=== PATIENT | female | born 1980 | race Caucasian/White ===

== ENCOUNTER 2018-07-14 20:16 | Emergency (ER) | payer SELFPAY ==
[2018-07-14] MEDS ORDERED: predniSONE 20 MG TAB PO ONE (20:45)
[2018-07-14] MEDS ORDERED: ALBUTEROL 3 ML DEYVIAL IH ONE (20:45)
[2018-07-14] MEDS ORDERED: DOXYCYCLINE HYCLATE 100 MG CAP/TAB PO ONE (20:45)
[2018-07-14] MEDS ORDERED: BENZONATATE 100 MG CAP PO ONE (20:45)
--- NOTE | 2018-07-14 20:45 | EDPHY ---
H & P Stated Complaint: "upper resp inf x2 wks", increasing dizziness, diff breathin Time Seen by Provider: 07/14/18 20:38 HPI/ROS: HPI: This is a 37-year-old female who presents with Chief Complaint: "upper resp inf x2 wks", increasing dizziness, diff breathin Location: Chest Quality: Cold and congestion Duration: 2 weeks Signs and Symptoms: no fever, no nausea, no vomiting, no diarrhea, no urinary symptoms, no chest pain, no shortness of breath, no wheezing, + cough, no sore throat, no neck stiffness, no joint pain, no swollen glands, no ear pain, no rash Timing: Daily, worsening Severity: Moderate Context: 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 She has no prior history of lung disease. She reports that she felt dizzy while starting to teaching had to leave work this evening. She initially started with runny nose, nasal congestion and sore throat. She now has complaints of difficulty taking a deep breath with productive cough. Modifying Factors: [id number] cold medications with no relief Comment: ROS: A comprehensive 10 system review of systems is otherwise negative aside from elements mentioned in the history of present illness. MEDICAL/SURGICAL/SOCIAL HISTORY: Medical history: Generally healthy. Does not take any regular medications. LMP 2-3 weeks ago Surgical history: Denies Social history: Never smoked. Family history noncontributory. CONSTITUTIONAL: Extremely well-appearing adult white female, awake and alert, no obvious distress HEENT: Atraumatic and normocephalic, PERRL, EOMI. Nares patent; no rhinorrhea; no nasal mucosal edema. Tympanic membranes clear. Oropharynx clear, no tonsillar hypertrophy, no exudate and moist pink mucosa. Airway patent. No lymphadenopathy. No meningismus. Cardiovascular: Normal S1/S2, regular rate, regular rhythm, without murmur rub or gallop. PULMONARY/CHEST: Symmetrical and nontender. Clear to auscultation bilaterally. Good air movement. No accessory muscle usage. ABDOMEN: Soft, nondistended, nontender, no rebound, no guarding, no peritoneal signs, no masses or organomegaly. No CVAT. EXTREMITIES: 2/2 pulses, strength 5/5, no deformities, no clubbing, no cyanosis or edema. NEUROLOGICAL: no focal neuro deficits. GCS 15. SKIN: Warm and dry, no erythema. no rash. Good capillary refill. Source: Patient Exam Limitations: No limitations - Personal History LMP (Females 10-55): 15-21 Days Ago Current Tetanus Diphtheria and Acellular Pertussis (TDAP): Yes - Medical/Surgical History Hx Asthma: No Hx Chronic Respiratory Disease: No Hx Diabetes: No Hx Cardiac Disease: No Hx Renal Disease: No Hx Cirrhosis: No Hx Alcoholism: No Hx HIV/AIDS: No Hx Splenectomy or Spleen Trauma: No Other PMH: denies - Social History Smoking Status: Never smoked Constitutional: Initial Vital Signs Temperature (C) 36.7 C 07/14/18 20:19 Heart Rate 99 07/14/18 20:19 Respiratory Rate 18 07/14/18 20:19 Blood Pressure 169/95 H 07/14/18 20:19 O2 Sat (%) 98 07/14/18 20:19 O2 Delivery Mode Room Air Allergies/Adverse Reactions: No Known Allergies Allergy (Unverified 07/14/18 20:19) Home Medications: Medication Instructions Recorded Albuterol Sulfate [Proair Hfa] 8.5 gm IH Q4 PRN #1 hfa.aer.ad 07/14/18 Benzonatate [Tessalon Pearles (RX)] 100 mg PO Q6 PRN #12 cap 07/14/18 Doxycycline Hyclate 100 mg PO BID 7 Days #14 tab 07/14/18 Medical Decision Making - Diagnostics Imaging Results: Imaging Impressions Chest X-Ray 07/14/18 20:45 Impression: No acute cardiopulmonary process. ED Course/Re-evaluation: Vital signs reviewed and stable upon arrival. No signs of hypoxia, respiratory distress. Wells criteria low for pulmonary embolism Chest x-ray my read shows no opacity, no effusion, no pulmonary congestion, no pneumothorax. Given albuterol nebulizer, prednisone 60 mg, Tessalon Perles, doxycycline 100 mg for bacterial bronchitis Work note provided per request. This patient was seen under the supervision of my secondary supervising physician. I evaluated care for this patient independently. Discussed this patient with Dr. Moreno. Differential Diagnosis: Differential diagnosis includes but is not limited to pneumonia, bronchitis, upper respiratory infection, congestive heart failure, pulmonary embolism. - Data Points Medications Given: Discontinued Medications Albuterol (Proventil Neb) 3 ml IH EDNOW ONE Stop: 07/14/18 20:46 Last Admin: 07/14/18 20:51 Dose: 3 ml Benzonatate (Tessalon Pearles) 200 mg PO EDNOW ONE Stop: 07/14/18 20:46 Last Admin: 07/14/18 20:50 Dose: 200 mg Doxycycline Hyclate (Doxycycline Hyclate) 100 mg PO EDNOW ONE PRN Reason: Protocol Stop: 07/14/18 20:46 Last Admin: 07/14/18 20:51 Dose: 100 mg Prednisone (Prednisone) 60 mg PO EDNOW ONE Stop: 07/14/18 20:46 Last Admin: 07/14/18 20:50 Dose: 60 mg Departure - Departure Disposition: Home, Routine, Self-Care Clinical Impression: Acute bacterial bronchitis Condition: Good Instructions: Acute Bronchitis (ED) Additional Instructions: Chest x-ray today did not show pneumonia. It appears that you have bronchitis. Take antibiotic as directed until complete. Do not skip a dose. Use Tessalon Perles as needed for cough. Use albuterol inhaler as needed for shortness of breath or wheezing. Rest as much as possible until you are feeling better. Consume a minimum of 8-10 glasses of water or electrolyte fluid replacement drinks that include Gatorade, Powerade, Pedialyte. Referrals: JAUN PAULA [Other] - As per Instructions Stand Alone Forms: Work Excuse Prescriptions: Albuterol Sulfate [Proair Hfa] 8.5 gm IH Q4 PRN #1 hfa.aer.ad PRN Reason: Short Of Breath/Dyspnea Benzonatate [Tessalon Pearles (RX)] 100 mg PO Q6 PRN #12 cap PRN Reason: Cough, Moderate Doxycycline Hyclate 100 mg PO BID 7 Days #14 tab
[2018-07-14] MEDS ORDERED: predniSONE 20 MG TAB ONE (20:49)
[2018-07-14 21:30] VITALS: BP 145/79
--- NOTE | 2018-07-14 22:50 | CPEKG ---
Test Reason : OPEN Blood Pressure : / mmHG Vent. Rate : 097 BPM Atrial Rate : 098 BPM P-R Int : 156 ms QRS Dur : 106 ms QT Int : 346 ms P-R-T Axes : 056 064 013 degrees QTc Int : 440 ms Sinus rhythm Borderline T abnormalities, anterior leads Confirmed by Vasu Moreno ([id number]) on 07/14/2018 10:50:28 PM Referred By: Confirmed By:Vasu Moreno
== END 2018-07-14 21:29 | disposition home or self-care (01) ==
DX: J20.9 Acute bronchitis, unspecified (principal)
CPT/HCPCS: J7512; J7613